=== PATIENT | female | born 1980 | race American Indian/Alaskan Native ===

== ENCOUNTER 2017-04-15 08:56 | Outpatient (CLI) | payer MEDICAID ==
[2017-04-15 09:41] VITALS: BP 98/54
[2017-04-15] MEDS ORDERED: FIORICET PO ONE (10:00)
[2017-04-15 10:23] LABS: Urine Drugs of Abuse Note Disclamer
[2017-04-15 10:31] LABS: Bilirubin,Urine NEG (Negative); Blood,Urine NEG (Negative); Ketones,Urine NEG (Negative); Leukocyte Esterase,Urine NEG (Negative); Mucus,Urine FEW /HPF; Nitrite,Urine NEG (Negative); Protein,Urine <15 mg/dL mg/dL (Negative); Urobilinogen,Urine < 2.0 mg/dL (<2.0)
== END 2017-04-15 10:15 | disposition home or self-care (01) ==
LOC: TRG 08:56
PROVIDERS: ATTEND Obstetrics & Gynecology
DX: O09.522 Supervision of elderly multigravida, second trimester (principal); O47.02 False labor before 37 completed weeks of gestation, second trimester; Z3A.21 21 weeks gestation of pregnancy
CPT/HCPCS: 59025; 80307; 81001

== ENCOUNTER 2017-05-26 19:13 | Outpatient (CLI) | payer MEDICAID ==
[2017-05-26 19:59] VITALS: BP 119/83
[2017-05-26 21:04] LABS: Bilirubin,Urine NEG (Negative); Blood,Urine NEG (Negative); Ketones,Urine 20 mg/dL (Negative); Leukocyte Esterase,Urine NEG (Negative); Mucus,Urine 3+ /HPF; Nitrite,Urine NEG (Negative); Urobilinogen,Urine < 2.0 mg/dL (<2.0)
[2017-05-26] MEDS ORDERED: LACTATED RINGERS 1,000 ML ONE (21:19)
[2017-05-26] MEDS ORDERED: LACTATED RINGERS 1,000 ML IV SCH (21:39)
== END 2017-05-26 23:29 | disposition home or self-care (01) ==
LOC: TRG 19:13
PROVIDERS: ATTEND Obstetrics & Gynecology
DX: O09.523 Supervision of elderly multigravida, third trimester (principal); O47.02 False labor before 37 completed weeks of gestation, second trimester; Z3A.22 22 weeks gestation of pregnancy
CPT/HCPCS: 81001; 96360; J7120

== ENCOUNTER 2017-07-19 08:09 | Outpatient (CLI) | payer MEDICAID ==
--- NOTE | 2017-07-19 08:40 | Event Note ---
Date: 07/19/17 patient admitted to triage w/ complaints of cramping, vag spotting and leaking fluids after voiding. Patient reports + fm. No active bleeding assessed, SVE closed/50/-1, vertex. Small amount of brownish discharge noted on white swab. Nitrazine negative. Straight cath ua collected. patient vomited after assessment. Plan for IV hydration, zofran and will monitor for s/s labor. patient is morbidly obese making monitoring difficult. Patient also tells account of being at a football game Williams night and getting overheated. She states EMS was called but she was not taken to hospital.
[2017-07-19 08:54] VITALS: BP 116/59
[2017-07-19] MEDS ORDERED: ZOFRAN IV ONE (09:00)
[2017-07-19] MEDS ORDERED: LACTATED RINGERS 500 ML IV ONE ×2 (09:00)
[2017-07-19] MEDS ORDERED: BRETHINE SUB-Q ONE (09:02)
[2017-07-19] MEDS ORDERED: PHENERGAN PR PRN (10:14)
[2017-07-19] MEDS ORDERED: MORPHINE IM ONE (10:15)
[2017-07-19 10:57] LABS: Urine Drugs of Abuse Note Disclamer
[2017-07-19 11:10] LABS: Bilirubin,Urine NEG (Negative); Blood,Urine NEG (Negative); Ketones,Urine NEG (Negative); Leukocyte Esterase,Urine NEG (Negative); Nitrite,Urine NEG (Negative); Protein,Urine <15 mg/dL mg/dL (Negative); Urobilinogen,Urine < 2.0 mg/dL (<2.0)
== END 2017-07-19 11:49 | disposition home or self-care (01) ==
LOC: TRG 08:09
PROVIDERS: ATTEND Obstetrics & Gynecology
DX: O09.523 Supervision of elderly multigravida, third trimester (principal); O47.03 False labor before 37 completed weeks of gestation, third trimester; Z3A.34 34 weeks gestation of pregnancy
CPT/HCPCS: 59025; 80307; 81001; 96360; 96361; 96372; J2270; J2405; J3105; J7120